=== PATIENT | female | born 1965 | race Caucasian/White ===

== ENCOUNTER 2016-08-08 17:28 | Emergency (ER) | payer OTHER ==
[~2016-08-08] VITALS: Ht 152.4 cm; Wt 80.4 kg
[~2016-08-08 17:28] MED LIST: AMBIEN; AMBIEN10 MG PO; FLOMAX0.4 MG PO; GLUCOPHAGE500 MG PO; GLUCOSAMINE &1 EAC1 PO; HYDROCODON-ACE1 EAC7 PO; KLONOPIN0.5 M1 PO; MAGNESIUM200 MG PO; MEGACE20 MG PO; NAPROSYN250 MG PO; PRINIVIL5 MG PO; SERTRALINE HCL100 MG PO; VITAMIN B12-FO1 EACH PO; ZOLOFT25 MG PO; ZYRTEC10 M1 PO
[2016-08-08 23:04] VITALS: BP 135/79
== END 2016-08-08 23:04 | disposition home or self-care (01) ==
LOC: EME 17:28
DX: I88.9 Nonspecific lymphadenitis, unspecified (principal); Z88.7 Allergy status to serum and vaccine; Z88.2 Allergy status to sulfonamides
CPT/HCPCS: 76536; 99281; 99283